=== PATIENT | male | born 1965 | race Caucasian/White ===

== ENCOUNTER 2024-03-26 15:55 | Emergency (ER) | payer MEDICAID ==
[~2024-03-26] VITALS: Ht 177.8 cm; Wt 77.1 kg
[2024-03-26 16:24] VITALS: BP_SYST 158; PULSE 96; RESP 20; TEMP 99; O2SAT 96
[2024-03-26] MEDS: cephALEXin 500 MG CAPSULE PO ONE (17:32)
[2024-03-26] MEDS: IBUPROFEN 800 MG TABLET PO ONE (17:33)
[2024-03-26] MEDS: LIDOCAINE 2%, 20 ML MDV INJ ONE (18:15)
[2024-03-26] MEDS: KETOROLAC TROMETHAMINE 30 MG VIAL IM ONE (18:45)
[2024-03-26] MEDS ORDERED: CEPH-548 PO (19:08)
[2024-03-26] MEDS ORDERED: HYDR-3927 PO (19:08)
[2024-03-26] MEDS ORDERED: IBUP-1969 PO (19:08)
[2024-03-26 19:21] VITALS: BP_SYST 145; PULSE 89; RESP 18; TEMP 98.9; O2SAT 96
== END 2024-03-26 19:21 | disposition home or self-care (01) ==
LOC: SED 15:55
DX: M71.021 Abscess of bursa, right elbow (principal)
CPT/HCPCS: 99284; 10061; 73080; 96372; J1885; J2001

== ENCOUNTER 2024-03-28 10:55 | Emergency (ER) | payer MEDICAID ==
[~2024-03-28] VITALS: Ht 177.8 cm; Wt 77.1 kg
[~2024-03-28 10:55] MED LIST: CEPH-548 PO; HYDR-3927 PO; IBUP-1969 PO
[2024-03-28 10:59] VITALS: BP_SYST 133; PULSE 62; RESP 18; TEMP 98.3; O2SAT 98
[2024-03-28] MEDS ORDERED: DOXY100C5 PO (11:41)
[2024-03-28 12:01] VITALS: BP_SYST 133; PULSE 62; RESP 18; TEMP 98.3; O2SAT 98
[2024-03-28] MEDS ORDERED: HYDR-3917 PO (13:15)
== END 2024-03-28 12:01 | disposition home or self-care (01) ==
LOC: SED 10:55
DX: L02.413 Cutaneous abscess of right upper limb (principal); Z79.899 Other long term (current) drug therapy; Z79.2 Long term (current) use of antibiotics
CPT/HCPCS: 99283

== ENCOUNTER 2024-04-10 11:04 | Emergency (ER) | payer MEDICAID ==
[~2024-04-10] VITALS: Ht 177.8 cm; Wt 77.6 kg
[~2024-04-10 11:04] MED LIST changes: +DOXY100C5 PO; +HYDR-3917 PO
[2024-04-10 11:10] VITALS: BP_SYST 137; PULSE 84; RESP 18; TEMP 98.1; O2SAT 97
[2024-04-10] MEDS ORDERED: HYDR-3927 PO (11:38)
[2024-04-10] MEDS ORDERED: CLIN-142 PO (11:38)
[2024-04-10] MEDS: HYDROcodone/ACETAMIN 10-325 MG TAB PO ONE (11:54)
[2024-04-10] MEDS: IBUPROFEN 800 MG TABLET PO ONE (11:54)
[2024-04-10 11:56] VITALS: BP_SYST 137; PULSE 84; RESP 18; TEMP 98.1; O2SAT 97
[2024-04-10] MEDS: DIPHTH,PERTUSS(ACELL),TET VAC 0.5 ML VIAL (Tdap) I.M. ONE (12:01)
[2024-04-10] MEDS: LIDOCAINE 1% 10 MG/ML, 20 ML MDV INJ ONE (12:04)
[2024-04-10] MEDS: BACITRACIN 1 GM OINT TP ONE (12:05)
== END 2024-04-10 11:56 | disposition home or self-care (01) ==
LOC: SED 11:04
DX: L02.511 Cutaneous abscess of right hand (principal); Z23 Encounter for immunization; Z79.899 Other long term (current) drug therapy; Z79.2 Long term (current) use of antibiotics
CPT/HCPCS: 90715; 99283

== ENCOUNTER 2024-04-16 10:19 | Emergency (ER) | payer MEDICAID ==
[~2024-04-16] VITALS: Ht 162.6 cm; Wt 77.1 kg
[~2024-04-16 10:19] MED LIST changes: +CLIN-142 PO
[2024-04-16 10:29] VITALS: BP_SYST 141; PULSE 81; RESP 18; TEMP 98.3; O2SAT 96
[2024-04-16 10:55] VITALS: BP_SYST 141; PULSE 81; RESP 15; TEMP 98.3; O2SAT 97
== END 2024-04-16 10:55 | disposition home or self-care (01) ==
LOC: SED 10:19
DX: L02.413 Cutaneous abscess of right upper limb (principal); Z79.899 Other long term (current) drug therapy; Z79.2 Long term (current) use of antibiotics
CPT/HCPCS: 99282